=== PATIENT | female | born 2000 | race Caucasian/White ===

== ENCOUNTER 2019-10-05 08:00 | Outpatient (CLI) | payer BC, MEDICAID, SELFPAY ==
--- NOTE | ~2019-10-05 | US_ITS ---
EXAMINATION: US OB /maternal detail DATE: 10/05/2019 09:46 INDICATION: survey TECHNIQUE: Multiple obstetric sonographic images performed. FINDINGS: No prior studies for comparison There is a single living fetus in variable presentation. The placenta is posterior without placenta previa. Placenta is 4.4 cm to the cervix. Amniotic fluid volume is subjectively normal. cardiac activity and movement is noted with a heart rate of 147 beats per minute. The following anatomy was identified as normal: 4 chamber heart 3 vessel cord cord insertion kidneys urinary bladder stomach spine diaphragm ventricles cisterna magna cerebellum The following biometric data were obtained: BPD: 47mm corresponds to gestational age 20 weeks 1 days. Head circumference: 181 mm corresponds to gestational age 20 weeks 4 days. Abdominal circumference: 149 mm corresponds to gestational age 20 weeks 1 days. Femur length: 34 mm corresponds to gestational age 20 weeks 4 days. Head circumference to abdominal circumference ratio: 1.22 (normal range for expected gestational age is 1.07-1.25). Estimated weight: 347 grams +/- 52 grams using Hadlock method. IMPRESSION: 1: Single living intrauterine with an estimated gestational age of 20weeks 3days by current ultrasound measurements, with an EDC of 02/19/2020 in variable presentation. 2. Normal survey. Reviewed, dictated and finalized at location A. IMPRESSION: 1: Single living intrauterine with an estimated gestational age of 20 weeks 3days by current ultrasound measurements, with an EDC of 02/19/2020 in va riable presentation. 2. Normal survey.
== END 2019-10-05 08:01 | disposition home or self-care (01) ==
LOC: ANHIMG 08:05
PROVIDERS: Visit Provider Obstetrics & Gynecology
DX: Z36.9 Encounter for antenatal screening, unspecified (principal); Z3A.20 20 weeks gestation of pregnancy
CPT/HCPCS: 76805